=== PATIENT | female | born 1940 | race Caucasian/White ===

== ENCOUNTER 2024-08-26 14:38 | Outpatient (CLI) | payer MEDICARE, BC ==
[~2024-08-26 14:38] MED LIST: COR3.125T PO
--- NOTE | 2024-08-26 15:48 | RADIOLOGY REPORT ---
EXAM: CT CT HEAD HISTORY: TINNITUS, BILATERAL, DIZZINESS AND GIDDINESS COMPARISON: None TECHNIQUE: Noncontrast axial CT images of the head were performed. Sagittal and coronal reformatted i mages were obtained. This CT exam was performed using 1 or more of the following dose reduction techn iques: Automated exposure control, adjustment of the mA and/or kv according to patient size, or the u se of iterative reconstruction techniques. Radiation Dose: CTDI volume is 47.35 mGy. Dose-length product is 819.61 mGy*cm FINDINGS: No intracranial hemorrhage, mass, midline shift, hydrocephalus, or evidence of acute large vessel inf arct. There is mild decreased attenuation in the periventricular white matter. There is a left gil bullosa. There is moderate mucosal thickening of the left sphenoid sinus. There is a right sphenoid sinus mucous retention cyst. The bilateral mastoid air cells and middle ear spaces are clear. No leaf fat scraper nial fracture or scalp edema. IMPRESSION: 1. Chronic ischemic changes without evidence of acute intracranial process. 2. Bilateral sphenoid sinus disease.
== END 2024-08-26 23:59 | disposition home or self-care (01) ==
LOC: 64 CT 14:38
PROVIDERS: ATTEND Nurse Practitioner Family
DX: R42 Dizziness and giddiness (principal); H93.13 Tinnitus, bilateral
CPT/HCPCS: 70450